=== PATIENT | female | born 1950 | race Caucasian/White ===

== ENCOUNTER 2017-04-27 18:50 | Observation (INO) ==
[2017-04-27 19:48] LABS: Basophils # 0.1 K/mcL (0.0-0.2); Basophils % 0.3 %; Eosinophils # 0.3 K/mcL (0.0-0.6); Eosinophils % 2.1 %; Hematocrit 39.7 % (35.3-44.9); Hemoglobin 12.7 g/dL (11.5-15.4); Immature Granulocytes % 0.3 % (0-4); Immature Platelets 5.1 % (1.1-6.1); Lymphocytes # 3.1 K/mcL (0.6-4.6); Lymphocytes % 19.8 %; Mean Corpuscular Hemoglobin 28.1 pg (28.0-33.3); Mean Corpuscular Volume 87.8 fL (83.0-100.0); Mean Platelet Volume 10.4 fL (9.4-12.4); Monocytes # 1.9 K/mcL (0.0-1.3); Monocytes % 12.6 %; Platelet Count 285 K/mcL (140-400); Red Blood Count 4.52 M/mcL (3.82-4.97); Red Cell Distribution Width 12.5 % (11.5-14.5); Segmented Neutrophils % 64.9 %
[2017-04-27] MEDS ORDERED: Ipratropium/Albuterol Neb 3 ML IH ONE (19:55)
[2017-04-27 20:01] LABS: BUN/Creatinine Ratio 19 (6-26); Blood Urea Nitrogen 14 mg/dL (7-20); Calcium 9.7 mg/dL (8.6-10.8); Carbon Dioxide 28 mEq/L (19-29); Chloride 97 mEq/L (98-109); Glucose 104 mg/dL (70-99); Osmolality,Calculated 285 (280-300); Potassium 3.8 mEq/L (3.5-4.5); Sodium 137 mEq/L (136-145); eGFR For African Americans > 60 (> 60); eGFR For Non-African Americans > 60 (> 60)
--- NOTE | 2017-04-27 20:17 | Emergency Department Note ---
Disposition Clinical Impression: Acute exacerbation of chronic obstructive pulmonary disease (COPD), Hip pain, right Disposition: Admitted As Inpatient Condition: Fair Referrals: NONE,PCP [Primary Care Provider] - Forms: ED Satisfaction Letter Chest Pain HPI - General Chief Complaint: ED Chest Pain Stated Complaint: CP/AVIS, Hip pain Time Seen by Provider: 04/27/17 19:19 Source: patient Vital Signs Reviewed: Yes Nursing Notes Reviewed: Yes - History of Present Illness HPI Narrative: Patient presents with shortness of breath last 1 week is intermittent and is worse with exertion and she does have associated chest pain which has been present for the last 4 hours and she does have a cough productive of green sputum. Does have some sneezing. Has had some nosebleed but not at this time. Does have some blood in the sputum but thinks this is from the nosebleed. No fever or blurred vision. No blood in the urine. Has had blood in the stool. Does have swelling bilateral lower extremities. No weight gain. No numbness of the extremities. No skin rash or bruising of the skin. No history of congestive heart failure. Social history: Stopped smoking one year ago. Is here with her son. Severity scale (1-10): 9 - Related Data Home Medications Medication Instructions Recorded Confirmed Paroxetine [Paxil] 20 mg PO HS 07/08/16 04/27/17 Triamterene/Hydrochlorothiazid 1 each PO DAILY 07/08/16 04/27/17 [Dyazide 37.5-25 Capsule] metFORMIN [Glucophage] 500 mg PO BIDWM 07/08/16 04/27/17 Albuterol Sulfate [Albuterol 2 puff IH Q4HR 04/27/17 04/27/17 Inhaler] Ascorbate Calcium [Vitamin C] 500 mg PO DAILY 04/27/17 04/27/17 Budesonide Neb [Pulmicort Neb] 0.5 mg IH BID 04/27/17 04/27/17 Cholecalciferol (D-3) [Vitamin D] 1,000 unit PO DAILY 04/27/17 04/27/17 Ipratropium/Albuterol Neb [Duoneb] 3 ml IH Q6H 04/27/17 04/27/17 Loratadine [Allergy Relief] 10 mg PO DAILY 04/27/17 04/27/17 Allergies Allergy/AdvReac Type Severity Reaction Status Date / Time acetaminophen [From Percocet] Allergy See Verified 07/07/16 21:14 Comments bupropion [From Wellbutrin] Allergy See Verified 07/07/16 21:14 Comments Oxycodone [From Percocet] Allergy See Verified 07/07/16 21:14 Comments morphine AdvReac Hives Verified 11/24/15 16:16 pseudoephedrine AdvReac See Verified 11/24/15 16:16 [From Sudafed] Comments Review of Systems: does have a cough productive of green sputum. Does have some sneezing. Has had some nosebleed but not at this time. Does have some blood in the sputum but thinks this is from the nosebleed. No fever or blurred vision. No blood in the urine. Has had blood in the stool. Does have swelling bilateral lower extremities. No weight gain. No numbness of the extremities. No skin rash or bruising of the skin. Chest Pain PMH - Past Medical History Medical history: Reports: arthritis, diabetes, hypertension Surgical history: Reports: appendectomy, cholecystectomy Psychiatric history: Reports: no psych history [employer] history: Reports: bilateral tubal ligation - Social History Smoking Status: Former smoker Alcohol use: Reports: none Drug use: Reports: none Physical Exam CONSTITUTIONAL: Well-appearing; well-nourished; A&O X 3, in no apparent distress HEAD: Normocephalic; atraumatic EYES: PERRL, no scleral icterus NOSE: The nose is normal in appearance without rhinorrhea NECK: No JVD or distended neck veins RESP: Normal chest excursion with respiration; breath sounds with bilateral wheezing with tight lungs and poor air movement, lung sounds are symmetric CARD: Regular rhythm, without murmurs, rub or gallop ABD: Non-distended; non-tender, soft, without rigidity, rebound or guarding,no pulsatile mass SKIN: Normal for age and race; warm and dry without diaphoresis ; no apparent lesions EXTREMITIES: Pulses are 2 plus and equal times 4 extremities, no peripheral edema or calf muscle pain - General General appearance: alert Course Vital Signs Temperature 98.7 F 04/27/17 18:51 Pulse Rate 103 04/27/17 18:51 Respiratory Rate 24 04/27/17 18:51 Blood Pressure 141/84 04/27/17 18:51 O2 Sat by Pulse Oximetry 99 04/27/17 18:51 Temperature 98.7 F 04/27/17 18:51 Pulse Rate 103 04/27/17 18:51 Respiratory Rate 25 04/27/17 20:39 Blood Pressure 141/84 04/27/17 18:51 O2 Sat by Pulse Oximetry 100 04/27/17 20:39 Oxygen Delivery Oxygen Delivery Room Air Chest Pain - MDM Narrative Medical decision making narrative: I did review the patient's lab was some mild leukocytosis which could be from demargination, patient will be started on antibiotics, chest x-ray does not show an acute infiltrate. Patient will be admitted to hospital. Does also have some right hip pain which she has had since she was 17 years old, I did look at the hip and is no erythema or evidence of infection, does have decreased range of motion and pain with range of motion. 2016 I did review the EKG showing sinus tachycardia with rate of 103 without acute ischemic change. The HI and QRS interval is normal. I did compared to previous EKG from 2016 without significant change. Did speak with the hospitalist who accepted the patient for admission for COPD exacerbation. Patient does have what seems to me to be chronic right hip pain which is worse now this could be because of difference in amount of ambulation based on the fact that she has had a progressively worsening COPD exacerbation for the last 1 week and x-ray will be done. I do not find signs of infection. The patient had a low BNP and I do not suspect congestive heart failure, troponin is negative, the d-dimer based on a age-adjusted fashion is not concerning for pulmonary embolism. The patient will be admitted on steroids, DuoNeb, antibiotics which include Rocephin and Zithromax. 2051 - Lab Data Result diagrams: 04/27/17 19:37 04/27/17 19:37 Lab Results 04/27/17 04/27/17 04/27/17 Range/Units 19:37 19:37 19:37 WBC 15.4 H (4.3-11.1) K/mcL RBC 4.52 (3.82-4.97) M/mcL Hgb 12.7 (11.5-15.4) g/dL Hct 39.7 (35.3-44.9) % MCV 87.8 (83.0-100.0) fL MCH 28.1 (28.0-33.3) pg MCHC 32.0 (31.6-35.5) g/dL RDW 12.5 (11.5-14.5) % Plt Count 285 (140-400) K/mcL MPV 10.4 (9.4-12.4) fL Immature Gran % 0.3 (0-4) % Seg Neutrophils % 64.9 % Lymphocytes % 19.8 % Monocytes % 12.6 % Eosinophils % 2.1 % Basophils % 0.3 % Neutrophils # 10.0 H (1.6-8.9) K/mcL Lymphocytes # 3.1 (0.6-4.6) K/mcL Monocytes # 1.9 H (0.0-1.3) K/mcL Eosinophils # 0.3 (0.0-0.6) K/mcL Basophils # 0.1 (0.0-0.2) K/mcL Immature Plt Fraction 5.1 (1.1-6.1) % D-Dimer (0-500) ng/mLFEU Sodium 137 (136-145) mEq/L Potassium 3.8 (3.5-4.5) mEq/L Chloride 97 L (98-109) mEq/L Carbon Dioxide 28 (19-29) mEq/L BUN 14 (7-20) mg/dL Creatinine 0.73 (0.57-1.11) mg/dL Est GFR ( Amer) > 60 (> 60) Est GFR (Non-Af Amer) > 60 (> 60) BUN/Creatinine Ratio 19 (6-26) Glucose 104 H (70-99) mg/dL Calculated Osmolality 285 (280-300) Calcium 9.7 (8.6-10.8) mg/dL Troponin I 0.00 (0-0.03) ng/mL B-Natriuretic Peptide (0-100) pg/mL 04/27/17 04/27/17 Range/Units 19:37 19:37 WBC (4.3-11.1) K/mcL RBC (3.82-4.97) M/mcL Hgb (11.5-15.4) g/dL Hct (35.3-44.9) % MCV (83.0-100.0) fL MCH (28.0-33.3) pg MCHC (31.6-35.5) g/dL RDW (11.5-14.5) % Plt Count (140-400) K/mcL MPV (9.4-12.4) fL Immature Gran % (0-4) % Seg Neutrophils % % Lymphocytes % % Monocytes % % Eosinophils % % Basophils % % Neutrophils # (1.6-8.9) K/mcL Lymphocytes # (0.6-4.6) K/mcL Monocytes # (0.0-1.3) K/mcL Eosinophils # (0.0-0.6) K/mcL Basophils # (0.0-0.2) K/mcL Immature Plt Fraction (1.1-6.1) % D-Dimer 600 H (0-500) ng/mLFEU Sodium (136-145) mEq/L Potassium (3.5-4.5) mEq/L Chloride (98-109) mEq/L Carbon Dioxide (19-29) mEq/L BUN (7-20) mg/dL Creatinine (0.57-1.11) mg/dL Est GFR ( Amer) (> 60) Est GFR (Non-Af Amer) (> 60) BUN/Creatinine Ratio (6-26) Glucose (70-99) mg/dL Calculated Osmolality (280-300) Calcium (8.6-10.8) mg/dL Troponin I (0-0.03) ng/mL B-Natriuretic Peptide 15 (0-100) pg/mL
[2017-04-27] MEDS ORDERED: Azithromycin 500 MG in D5% in Water 250 ML IVPB ONE (20:18)
[2017-04-27] MEDS ORDERED: *HR* LORazepam 2 MG/ML VIAL IVP ONE (20:27)
[2017-04-27] MEDS ORDERED: Ipratropium/Albuterol Neb 3 ML IH PRN (21:56)
[2017-04-27] MEDS ORDERED: *HR* Dextrose 50 % in Water (Syg) 50 ML SYRINGE IVP PRN (21:57)
[2017-04-27] MEDS ORDERED: Naloxone 0.4 MG/ML INJ IVP PRN (21:57)
[2017-04-27] MEDS ORDERED: D5% in Water 1,000 ML IVC PRN (21:57)
[2017-04-27] MEDS ORDERED: Dextrose Gel 15 GM PO PRN ×2 (21:57)
--- NOTE | 2017-04-27 22:06 | Internal Med History&Physical ---
Date of Encounter: 04/27/17 Time of Encounter: 22:03 Assessment and Plan (1) Acute exacerbation of chronic obstructive pulmonary disease (COPD) Current visit: Yes Status: Acute duonebs, steroids IV, levaquin empiric for possible PNA ?? (2) Hip pain, right Current visit: Yes Status: Acute zanaflex, tramadol order, PT eval, XR hip in ED wnl, further management pending hospital course (3) Diabetes mellitus type 2 in obese Current visit: No Status: Chronic hold metformin, ISS for now (4) Hypertension Current visit: No Status: Chronic continue med Qualifiers: Hypertension type: essential hypertension Qualified Code(s): I10 - Essential (primary) hypertension Internal Medicine - H&P: HPI Chief complaint: SOB History of present illness: Ms. Rodas is a 66 year old female who presents with acute COPD exacerbation. At baseline, she lives with at home and uses 3L NC oxygen. In the last few days, she has noted progressive worsening of respiratory function with increasing SOB, worse with exertion, better at rest. On review, she also reported 1 week hx of right hip pain w/o antecedent trauma to the area. She reports right hip area pain, worse with leg raise which intermittently produces a shooting pain to the thigh. No prior hx of hx surgery in the area. As a result, she has been walking with a limp in the last week now. No sensory deficits XR/XR hip complete RT IMPRESSION: No acute osseous abnormality. Degenerative change as above. XR/XR chest 2V IMPRESSION: Bilateral lower lobe airspace disease. Findings could represent pneumonia or edema superimposed on obstructive lung disease. Past Med Surg Social Fam HX - Past Medical History Medical history: arthritis, diabetes, hypertension Psychiatric history: no psych history - Past Surgical History Surgical History: appendectomy, cholecystectomy - Social History Smoking Status: Former smoker Smokeless Tobacco Status: No Alcohol use: none Drug use: none - Family History Sister Hx Family Respiratory Disorders: Yes (COPD.) Internal Medicine - H&P: Meds Paroxetine [Paxil] 20 mg PO HS 07/08/16 [History] Triamterene/Hydrochlorothiazid [Dyazide 37.5-25 Capsule] 1 each PO DAILY [History] metFORMIN [Glucophage] 500 mg PO BIDWM 07/08/16 [History] Albuterol Sulfate [Albuterol Inhaler] 2 puff IH Q4HR 04/27/17 [History] Ascorbate Calcium [Vitamin C] 500 mg PO DAILY 04/27/17 [History] Budesonide Neb [Pulmicort Neb] 0.5 mg IH BID 04/27/17 [History] Cholecalciferol (D-3) [Vitamin D] 1,000 unit PO DAILY 04/27/17 [History] Ipratropium/Albuterol Neb [Duoneb] 3 ml IH Q6H 04/27/17 [History] Loratadine [Allergy Relief] 10 mg PO DAILY 04/27/17 [History] 3 Allergy/AdvReac Type Severity Reaction Status Date / Time acetaminophen [From Percocet] Allergy See Verified 07/07/16 21:14 Comments bupropion [From Wellbutrin] Allergy See Verified 07/07/16 21:14 Comments Oxycodone [From Percocet] Allergy See Verified 07/07/16 21:14 Comments morphine AdvReac Hives Verified 11/24/15 16:16 pseudoephedrine AdvReac See Verified 11/24/15 16:16 [From Sudafed] Comments All Systems PM: A 10-system review of systems was performed and is negative for pertinent findings except as documented above in the HPI. Review of systems: ROS 14 point review of systems reviewed as best as possible given presentation. Pertinent positive or negative as per HPI or otherwise reviewed as negative - Constitutional Vitals: Temp Pulse Resp BP Pulse Ox 98.7 F 96 16 124/50 99 04/27/17 18:51 04/27/17 21:50 04/27/17 21:50 04/27/17 21:50 04/27/17 21:50 Exam: General - AAO x 3 Psych - Appropriate affect/speech. No agitation Eyes - EDELMIRA. Eye lids intact. No scleral icterus Neuro - No gross central neuro deficits Heart - Sinus. RRR. S1 and S2 present. No added HS/murmurs appreciated. No elevated JVD appreciated. Lung - Adequate air entry b/l, diffuse wheezes throughout, bibasal crackles GI - Soft, non-tender. No hepatosplenomegaly/ascites. BS+ - No CVA/suprapubic tenderness or palpable bladder distension Skin - Intact. No rash/petechiae/ecchymosis. Warm extremities MSK - Right hip area pain on lifting leg Internal Med - H&P Results - Labs CBC & Chem 7: 04/27/17 19:37 04/27/17 19:37 Labs: Short CBC 04/27/17 Range/Units 19:37 WBC 15.4 H (4.3-11.1) K/mcL Hgb 12.7 (11.5-15.4) g/dL Hct 39.7 (35.3-44.9) % Plt Count 285 (140-400) K/mcL Neutrophils # 10.0 H (1.6-8.9) K/mcL BMP 04/27/17 19:37 Sodium 137 Potassium 3.8 Chloride 97 L Carbon Dioxide 28 BUN 14 Creatinine 0.73 Glucose 104 H Calcium 9.7 Cardiac Enzymes 04/27/17 Range/Units 19:37 Troponin I 0.00 (0-0.03) ng/mL - Impressions ITS Impressions Chest X-Ray 04/27/17 19:17 IMPRESSION: Bilateral lower lobe airspace disease. Findings could represent pneumonia or edema superimposed on obstructive lung disease. D/ / Savita Dukes Cha, MD / Savita Dukes Cha, MD Interpreting Provider: Savita Dukes Cha, MD Hip X-Ray 04/27/17 20:26 IMPRESSION: No acute osseous abnormality. Degenerative change as above. D/ / Rigoberto Martinez MD / Rigoberto Martinez MD Interpreting Provider: Rigoberto Martinez MD
[2017-04-27] MEDS: Ipratropium/Albuterol Neb 3 ML IH SCH (22:56)
[2017-04-28] MEDS: traMADol 50 MG TABLET PO PRN (00:37)
[2017-04-28] MEDS: MethylPREDNISolone 40 MG/ML VIAL IVP SCH ×4 (00:37→17:12)
[2017-04-28] MEDS: tiZANidine 4 MG TABLET PO PRN ×3 (03:38→21:07)
[2017-04-28] MEDS: Ipratropium/Albuterol Neb 3 ML IH SCH ×4 (03:57→22:08)
[2017-04-28 05:30] LABS: Basophils % 0.1 %; Eosinophils % 0.1 %; Hemoglobin 11.4 g/dL (11.5-15.4); Immature Granulocytes % 0.6 % (0-4); Lymphocytes # 1.5 K/mcL (0.6-4.6); Lymphocytes % 10.7 %; Mean Corpuscular HGB Conc 31.7 g/dL (31.6-35.5); Mean Corpuscular Hemoglobin 27.5 pg (28.0-33.3); Mean Platelet Volume 10.7 fL (9.4-12.4); Monocytes # 0.4 K/mcL (0.0-1.3); Monocytes % 3.1 %; Neutrophils # 11.7 K/mcL (1.6-8.9); Platelet Count 258 K/mcL (140-400); Red Blood Count 4.14 M/mcL (3.82-4.97); Red Cell Distribution Width 12.5 % (11.5-14.5); Segmented Neutrophils % 85.4 %
[2017-04-28] MEDS: *HR* Enoxaparin 40 MG/0.4 ML SYRINGE SQ SCH (05:35)
[2017-04-28 05:37] LABS: BUN/Creatinine Ratio 16 (6-26); Blood Urea Nitrogen 12 mg/dL (7-20); Calcium 9.5 mg/dL (8.6-10.8); Carbon Dioxide 28 mEq/L (19-29); Chloride 97 mEq/L (98-109); Glucose 185 mg/dL (70-99); Magnesium 1.9 mg/dL (1.6-2.6); Osmolality,Calculated 283 (280-300); Potassium 4.3 mEq/L (3.5-4.5); Sodium 134 mEq/L (136-145); eGFR For African Americans > 60 (> 60); eGFR For Non-African Americans > 60 (> 60)
[2017-04-28] MEDS: Ascorbic Acid 500 MG TABLET PO SCH (08:41)
[2017-04-28] MEDS: Loratadine 10 MG TABLET PO SCH (08:41)
[2017-04-28] MEDS: Cholecalciferol (D-3) 1,000 UNIT TABLET PO SCH (08:41)
[2017-04-28] MEDS: Levofloxacin 500 MG/100 ML 500 MG/100 ML BAG IVPB SCH (08:42)
[2017-04-28] MEDS: Insulin LISPRO 300 UNITS/3 ML VIAL SQ SCH ×3 (08:42→17:11)
[2017-04-28] MEDS: Budesonide Neb 0.5 MG/2 ML IH SCH ×2 (10:22→22:08)
--- NOTE | 2017-04-28 16:22 | Internal Med Progress Note ---
Date of Encounter: 04/28/17 Time of Encounter: 09:25 - Assessment and plan (1) Acute exacerbation of chronic obstructive pulmonary disease (COPD) Current Visit: Yes Status: Acute Assessment and plan: continue treatment with bronchodilators, IV steroids and Levaquin. Moderate risk for complications. (2) Diabetes mellitus type 2 in obese Current Visit: Yes Status: Chronic Assessment and plan: Blood sugars are elevated. We will place patient on long-acting insulin. Monitor blood sugars and Also adjust sliding scale coverage accordingly. (3) Hip pain, right Current Visit: Yes Status: Acute Assessment and plan: With features of lumbar radiculopathy. Symptomatic care. We will arrange follow-up as outpatient with spine surgery. We will get CT scan of the lumbar spine. Physical therapy. (4) Hypertension Current Visit: Yes Status: Chronic Assessment and plan: Well controlled. Qualifiers: Hypertension type: essential hypertension Qualified Code(s): I10 - Essential (primary) hypertension - Subjective Interval history: Patient is feeling somewhat better with regards to her breathing but continues to have right sided hip pain in the right lower back. No chest pain at this time. No sensory deficits. No lower extremity weakness. No bowel or bladder incontinence. - Constitutional Vitals: Temp Pulse Resp BP Pulse Ox 97.0 F L 76 16 113/56 96 04/28/17 15:20 04/28/17 15:20 04/28/17 15:43 04/28/17 15:20 04/28/17 15:43 General appearance: Present: cooperative, A&O X 3, answers questions appropriately - Neck Neck exam general surgery: Present: supple, trachea midline. Absent: lymphadenopathy - Respiratory Respiratory exam: Present: prolonged expiratory phase, wheezes. Absent: accessory muscle use, rales, rhonchi - Cardiovascular Cardiovascular exam: Present: RRR, +S1, +S2. Absent: diastolic murmur, gallop, rubs, systolic murmur - GI/Abdominal GI/Abdominal exam: Present: normal bowel sounds, soft, no peritoneal signs. Absent: distended, tenderness - Extremities Exam Extremities exam: Present: warm, radial pulses palpable and symmetrical. Absent : calf tenderness, cyanotic, pedal edema - Neurological Exam Neurological exam: Present: alert, oriented X3, no focal deficits. Absent: facial droop, speech deficit Internal Medicine: Result - Labs CBC & Chem 7: 04/28/17 05:11 04/28/17 05:11 Labs: Short CBC 04/28/17 Range/Units 05:11 WBC 13.7 H (4.3-11.1) K/mcL Hgb 11.4 L (11.5-15.4) g/dL Hct 36.0 (35.3-44.9) % Plt Count 258 (140-400) K/mcL Neutrophils # 11.7 H (1.6-8.9) K/mcL BMP 04/28/17 05:11 Sodium 134 L Potassium 4.3 Chloride 97 L Carbon Dioxide 28 BUN 12 Creatinine 0.73 Glucose 185 H Calcium 9.5 - ABG Interpretation ABG results: PT/INR, D-dimer D-Dimer 600 ng/mLFEU (0-500) H 04/27/17 19:37 Consult Discharge Plan - Plan Referrals: NONE,PCP [Primary Care Provider] -
[2017-04-28] MEDS: 0.9 % Sodium Chloride 1,000 ML IVC SCH (17:12)
[2017-04-28] MEDS ORDERED: Insulin LISPRO 300 UNITS/3 ML VIAL SQ SCH (21:00)
[2017-04-28] MEDS: Insulin DETEMIR 100 UNIT/ML X5UNITS SQ SCH (21:08)
[2017-04-29] MEDS: MethylPREDNISolone 40 MG/ML VIAL IVP SCH ×4 (00:17→17:12)
[2017-04-29] MEDS: Ipratropium/Albuterol Neb 3 ML IH SCH ×4 (04:40→21:06)
[2017-04-29] MEDS: tiZANidine 4 MG TABLET PO PRN ×3 (05:28→23:30)
[2017-04-29] MEDS: *HR* Enoxaparin 40 MG/0.4 ML SYRINGE SQ SCH (05:29)
[2017-04-29 08:06] LABS: Hematocrit 33.8 % (35.3-44.9); Hemoglobin 10.7 g/dL (11.5-15.4); Immature Granulocytes % 1.2 % (0-4); Lymphocytes % 6.4 %; Mean Corpuscular HGB Conc 31.7 g/dL (31.6-35.5); Mean Corpuscular Hemoglobin 27.6 pg (28.0-33.3); Mean Corpuscular Volume 87.3 fL (83.0-100.0); Mean Platelet Volume 11.4 fL (9.4-12.4); Monocytes % 4.6 %; Platelet Count 267 K/mcL (140-400); Red Blood Count 3.87 M/mcL (3.82-4.97); Red Cell Distribution Width 12.5 % (11.5-14.5); Segmented Neutrophils % 87.7 %
[2017-04-29 08:07] LABS: Basophils % 0.1 %; Lymphocytes # 1.2 K/mcL (0.6-4.6); Monocytes # 0.9 K/mcL (0.0-1.3); Neutrophils # 16.9 K/mcL (1.6-8.9); Nucleated Red Blood Cells 0.1 /100 WBC (0)
[2017-04-29] MEDS: Loratadine 10 MG TABLET PO SCH (08:37)
[2017-04-29] MEDS: Ascorbic Acid 500 MG TABLET PO SCH (08:37)
[2017-04-29] MEDS: Cholecalciferol (D-3) 1,000 UNIT TABLET PO SCH (08:37)
[2017-04-29] MEDS: Levofloxacin 500 MG/100 ML 500 MG/100 ML BAG IVPB SCH (08:37)
[2017-04-29 08:38] LABS: BUN/Creatinine Ratio 23 (6-26); Blood Urea Nitrogen 15 mg/dL (7-20); Calcium 9.3 mg/dL (8.6-10.8); Carbon Dioxide 27 mEq/L (19-29); Chloride 99 mEq/L (98-109); Glucose 196 mg/dL (70-99); Osmolality,Calculated 284 (280-300); Potassium 4.4 mEq/L (3.5-4.5); Sodium 134 mEq/L (136-145); eGFR For African Americans > 60 (> 60); eGFR For Non-African Americans > 60 (> 60)
[2017-04-29] MEDS: Insulin LISPRO 300 UNITS/3 ML VIAL SQ SCH ×3 (08:38→16:55)
[2017-04-29] MEDS: Insulin DETEMIR 100 UNIT/ML X5UNITS SQ SCH ×2 (08:38→20:23)
[2017-04-29] MEDS: Budesonide Neb 0.5 MG/2 ML IH SCH ×2 (09:53→21:06)
[2017-04-29] MEDS: 0.9 % Sodium Chloride 1,000 ML IVC SCH (14:37)
--- NOTE | 2017-04-29 16:30 | Internal Med Progress Note ---
Date of Encounter: 04/29/17 Time of Encounter: 09:10 - Assessment and plan (1) Acute exacerbation of chronic obstructive pulmonary disease (COPD) Current Visit: Yes Status: Acute Assessment and plan: Will continue bronchodilators. Transition steroids to oral dosing. Continue O2 supplementation. Overall, I feel the patient is clinically improving. She would benefit from another day of scheduled bronchodilator therapy. If she continues to improve, she should be ready for discharge tomorrow. (2) Diabetes mellitus type 2 in obese Current Visit: Yes Status: Chronic Assessment and plan: Blood sugars remain elevated. We will increase insulin regimen further. Continue to monitor blood sugars closely. (3) Hip pain, right Current Visit: Yes Status: Acute Assessment and plan: Right hip pain with lumbar radiculopathy. CT scan of the lumbar spine shows no fracture but patient does have disc space narrowing with diffuse disc bulge at L4-L5 and L5-S1 level. There is also disc bulge at L3-L4 level. Mild-to- moderate foraminal narrowing noted from L4-S1. His could be the cause of patient's pain and symptoms symptoms of lumbar radiculopathy. Will refer patient to spine surgery for further management as outpatient. (4) Hypertension Current Visit: Yes Status: Chronic Assessment and plan: Blood pressure is well controlled at this time. Qualifiers: Hypertension type: essential hypertension Qualified Code(s): I10 - Essential (primary) hypertension - Subjective Interval history: Patient continues to improve but remains intermittently dyspneic. Pain in her lower back and right hip is also better with intermittent worsening. Denies any chest pain. No pedal edema. No orthopnea or PND. No palpitations. - Constitutional Vitals: Temp Pulse Resp BP Pulse Ox 98.3 F 83 18 108/53 97 04/29/17 15:28 04/29/17 15:28 04/29/17 15:28 04/29/17 15:28 04/29/17 15:28 General appearance: Present: cooperative, mild distress, A&O X 3, answers questions appropriately - Neck Neck exam general surgery: Present: supple, trachea midline. Absent: lymphadenopathy - Respiratory Respiratory exam: Present: prolonged expiratory phase, wheezes (Mild end expiratory wheezing. Improved compared to yesterday). Absent: accessory muscle use, rales, rhonchi - Cardiovascular Cardiovascular exam: Present: RRR, +S1, +S2. Absent: diastolic murmur, gallop, rubs, systolic murmur - GI/Abdominal GI/Abdominal exam: Present: normal bowel sounds, soft, no peritoneal signs. Absent: distended, tenderness - Extremities Exam Extremities exam: Present: warm, radial pulses palpable and symmetrical. Absent : calf tenderness, cyanotic, pedal edema - Neurological Exam Neurological exam: Present: alert, CN II-XII intact, oriented X3, no focal deficits. Absent: facial droop, speech deficit - Skin Skin exam: Present: dry, intact Internal Medicine: Result - Labs CBC & Chem 7: 04/29/17 07:00 04/29/17 07:00 Labs: Short CBC 04/29/17 Range/Units 07:00 WBC 19.3 H (4.3-11.1) K/mcL Hgb 10.7 L (11.5-15.4) g/dL Hct 33.8 L (35.3-44.9) % Plt Count 267 (140-400) K/mcL Neutrophils # 16.9 H (1.6-8.9) K/mcL BMP 04/29/17 07:00 Sodium 134 L Potassium 4.4 Chloride 99 Carbon Dioxide 27 BUN 15 Creatinine 0.65 Glucose 196 H Calcium 9.3 - ABG Interpretation ABG results: PT/INR, D-dimer D-Dimer 600 ng/mLFEU (0-500) H 04/27/17 19:37 - Impressions Impressions Lumbar Spine CT 04/28/17 16:26 IMPRESSION: No acute osseous abnormality. Degenerative change as above. D/ / 04/28/2017 18:40:25 Rigoberto Martinez MD / [email or web address] Interpreting Provider: Rigoberto Martinez MD Consult Discharge Plan - Plan Referrals: NONE,PCP [Primary Care Provider] - Rakesh Perry Jr, MD [Partnered Physician] - (In 1-2 weeks for L4-S1 bulge and foraminal narrowing along with symptoms of lumbar radiculopathy)
[2017-04-29] MEDS ORDERED: Insulin LISPRO 300 UNITS/3 ML VIAL SQ SCH ×2 (16:35)
[2017-04-30] MEDS: traMADol 50 MG TABLET PO PRN (03:48)
[2017-04-30] MEDS: Ipratropium/Albuterol Neb 3 ML IH SCH ×2 (04:19→10:51)
[2017-04-30] MEDS: tiZANidine 4 MG TABLET PO PRN (05:41)
[2017-04-30] MEDS: *HR* Enoxaparin 40 MG/0.4 ML SYRINGE SQ SCH (05:42)
[2017-04-30 06:38] LABS: Basophils % 0.1 %; Hematocrit 32.6 % (35.3-44.9); Hemoglobin 10.3 g/dL (11.5-15.4); Lymphocytes # 2.7 K/mcL (0.6-4.6); Lymphocytes % 12.2 %; Mean Corpuscular HGB Conc 31.6 g/dL (31.6-35.5); Mean Corpuscular Hemoglobin 28.1 pg (28.0-33.3); Mean Corpuscular Volume 88.8 fL (83.0-100.0); Mean Platelet Volume 11.6 fL (9.4-12.4); Monocytes # 1.5 K/mcL (0.0-1.3); Monocytes % 6.7 %; Neutrophils # 17.5 K/mcL (1.6-8.9); Platelet Count 282 K/mcL (140-400); Red Blood Count 3.67 M/mcL (3.82-4.97); Red Cell Distribution Width 12.7 % (11.5-14.5)
[2017-04-30 06:53] LABS: BUN/Creatinine Ratio 27 (6-26); Blood Urea Nitrogen 17 mg/dL (7-20); Calcium 9.3 mg/dL (8.6-10.8); Carbon Dioxide 28 mEq/L (19-29); Chloride 100 mEq/L (98-109); Glucose 115 mg/dL (70-99); Osmolality,Calculated 280 (280-300); Potassium 4.4 mEq/L (3.5-4.5); Sodium 134 mEq/L (136-145); eGFR For African Americans > 60 (> 60); eGFR For Non-African Americans > 60 (> 60)
[2017-04-30] MEDS ORDERED: predniSONE 20 MG TABLET PO SCH (09:00)
[2017-04-30] MEDS: Ascorbic Acid 500 MG TABLET PO SCH (09:01)
[2017-04-30] MEDS: Cholecalciferol (D-3) 1,000 UNIT TABLET PO SCH (09:01)
[2017-04-30] MEDS: Loratadine 10 MG TABLET PO SCH (09:01)
[2017-04-30] MEDS: Levofloxacin 500 MG/100 ML 500 MG/100 ML BAG IVPB SCH (09:02)
[2017-04-30] MEDS: Insulin DETEMIR 100 UNIT/ML X5UNITS SQ SCH (09:02)
[2017-04-30] MEDS: Budesonide Neb 0.5 MG/2 ML IH SCH (10:51)
[2017-04-30 11:13] VITALS: BP 114/73
--- NOTE | 2017-04-30 11:21 | Discharge Summary ---
Date of Encounter: 04/30/17 Time of Encounter: 11:18 - Discharge Diagnosis (1) Acute exacerbation of chronic obstructive pulmonary disease (COPD) Priority: Primary Status: Acute (2) Diabetes mellitus type 2 in obese Priority: Secondary Status: Chronic (3) Hip pain, right Priority: Secondary Status: Acute (4) Hypertension Priority: Secondary Status: Chronic Qualifiers: Hypertension type: essential hypertension Qualified Code(s): I10 - Essential (primary) hypertension - Discharge Medications Prescriptions: levoFLOXacin [Levaquin] 500 mg PO DAILY #7 tablet predniSONE [PredniSONE] 60 mg PO DAILY 12 Days Home Medications: Paroxetine [Paxil] 20 mg PO HS 07/08/16 [History] Triamterene/Hydrochlorothiazid [Dyazide 37.5-25 Capsule] 1 each PO DAILY [History] Albuterol Sulfate [Albuterol Inhaler] 2 puff IH Q4HR 04/27/17 [History] Ascorbate Calcium [Vitamin C] 500 mg PO DAILY 04/27/17 [History] Budesonide Neb [Pulmicort Neb] 0.5 mg IH BID 04/27/17 [History] Cholecalciferol (D-3) [Vitamin D] 1,000 unit PO DAILY 04/27/17 [History] Ipratropium/Albuterol Neb [Duoneb] 3 ml IH Q6H 04/27/17 [History] Loratadine [Allergy Relief] 10 mg PO DAILY 04/27/17 [History] levoFLOXacin [Levaquin] 500 mg PO DAILY #7 tablet 04/30/17 [Rx] predniSONE [PredniSONE] 60 mg PO DAILY 12 Days 04/30/17 [Rx] Allergies/Adverse Reactions: 3 Allergy/AdvReac Type Severity Reaction Status Date / Time acetaminophen [From Percocet] Allergy See Verified 07/07/16 21:14 Comments bupropion [From Wellbutrin] Allergy See Verified 07/07/16 21:14 Comments Oxycodone [From Percocet] Allergy See Verified 07/07/16 21:14 Comments morphine AdvReac Hives Verified 11/24/15 16:16 pseudoephedrine AdvReac See Verified 11/24/15 16:16 [From Sudafed] Comments Procedures/tests Complete & Pending: Procedures Performed prior 72 hours Category Date Time Status CT lumbar spine w con [CT] Routine Cat Scan 04/28/17 16:26 Completed Date of admission: 04/27/17 22:41 Primary care physician: PCP NONE Discharging clinician: Wendy Mancilla Anticipated date of discharge: 04/30/17 - Patient Status Disposition: Home, Self-Care Condition: Good Functional capacity at discharge: independent ambulation Overall status at discharge: patient is progressing back to baseline - Discharge Instructions Instructions: Prednisone (By mouth), Levofloxacin (By mouth), Acute Respiratory Distress Syndrome (DC), Diabetes Mellitus Type 2 in Adults (DC), Chronic Obstructive Pulmonary Disease (DC), Chronic Obstructive Pulmonary Disease (GEN) Follow Up With: Rakesh Perry Jr, MD [Partnered Physician] - (In 1-2 weeks for L4-S1 bulge and foraminal narrowing along with symptoms of lumbar radiculopathy) Romario Samson DO [Resident] - (PLEASE CALL THE OFFICE TOMORROW TO MAKE A FOLLOW UP APPT.) - Diet and Activity Activity: wear oxygen at all times Diet: diabetic diet, low fat, low cholesterol, low salt diet Hospital course: Ms. Rodas is a 66 year old female patient with history of COPD was admitted here with acute COPD exacerbation. She was treated with steroids, bronchodilators and levofloxacin with improvement in her symptoms. She also had right-sided lumbar radiculopathy and low back pain and right hip pain. CT scan of the lumbar spine showed some disc protrusion at L4-S1 levels with some foraminal narrowing. She will be referred to spine surgery for further management. She is chronically oxygen dependent and will continue to use oxygen at home. She is clinically stable for discharge at this time on a steroid taper and short course of antibiotics. - Time Spent with Patient Total time spent providing and/or coordinating discharge services: Greater than 30 minutes (32 min) - Constitutional Vitals: Temp Pulse Resp BP Pulse Ox 98.0 F 79 16 114/73 100 04/30/17 11:08 04/30/17 11:08 04/30/17 11:08 04/30/17 11:08 04/30/17 11:08 General appearance: Present: cooperative, mild distress, A&O X 3, obese, answers questions appropriately - Neck Neck exam general surgery: Present: supple, trachea midline. Absent: lymphadenopathy - Respiratory Respiratory exam: Present: prolonged expiratory phase. Absent: accessory muscle use, rales, rhonchi, wheezes - Cardiovascular Cardiovascular exam: Present: RRR, +S1, +S2. Absent: diastolic murmur, gallop, rubs, systolic murmur - GI/Abdominal GI/Abdominal exam: Present: normal bowel sounds, soft, no peritoneal signs. Absent: distended, tenderness - Extremities Exam Extremities exam: Present: warm, radial pulses palpable and symmetrical. Absent : calf tenderness, cyanotic, pedal edema
--- NOTE | 2017-05-01 10:18 | Electrocardiograph Report ---
[address] [address] Test Date: 2017-04-27 Pat Name: Mikala Rodas Department: 105 Room: 3B54 Gender: F Emblem Drawer In: CHAPIS : 1950 Requested By: Nickolas Saravia Order Number: [id number] Reading MD: Hadley Ramey MD Measurements Intervals [place] Rate: 103 P: 55 ME: 140 QRS: 74 QRSD: 86 T: 49 QT: 324 QTc: 384 Interpretive Statements SINUS TACHYCARDIA Electronically Signed On 05-01-2017 10:16:45 EDT by Hadley Ramey MD
== END 2017-04-30 12:21 | disposition home or self-care (01) ==
LOC: EMEROO 18:50 → 3BNU 18:50 → SUATTDRO 23:12 → 3BNU 23:41
PROVIDERS: ADMIT Internal Medicine; ATTEND Internal Medicine

== ENCOUNTER 2017-11-01 14:58 | Inpatient (IN) ==
[2017-11-01] MEDS ORDERED: Aspirin 81 MG TAB.CHEW PO ONE (15:38)
[2017-11-01] MEDS ORDERED: *HR* FentaNYL (PF) 100 MCG/2 ML VIAL IVP ONE (15:40)
[2017-11-01] MEDS ORDERED: Ipratropium/Albuterol Neb 3 ML IH ONE (15:40)
[2017-11-01] MEDS ORDERED: methylPREDNISolone 125 MG/2 ML VIAL IVP ONE (15:43)
[2017-11-01 15:53] LABS: Basophils # 0.1 K/mcL (0.0-0.2); Basophils % 0.4 %; Eosinophils # 0.5 K/mcL (0.0-0.6); Eosinophils % 3.9 %; Hematocrit 39.1 % (35.3-44.9); Hemoglobin 12.5 g/dL (11.5-15.4); Immature Granulocytes % 0.4 % (0-4); Lymphocytes # 3.8 K/mcL (0.6-4.6); Lymphocytes % 32.2 %; Mean Corpuscular Hemoglobin 27.9 pg (28.0-33.3); Mean Corpuscular Volume 87.3 fL (83.0-100.0); Mean Platelet Volume 10.5 fL (9.4-12.4); Monocytes # 1.1 K/mcL (0.0-1.3); Monocytes % 9.1 %; Neutrophils # 6.4 K/mcL (1.6-8.9); Platelet Count 300 K/mcL (140-400); Red Blood Count 4.48 M/mcL (3.82-4.97); Red Cell Distribution Width 13.2 % (11.5-14.5)
[2017-11-01 16:00] LABS: BUN/Creatinine Ratio 23 (6-26); Blood Urea Nitrogen 15 mg/dL (8-23); Calcium 9.7 mg/dL (8.6-10.3); Carbon Dioxide 28 mEq/L (23-29); Chloride 98 mEq/L (98-107); Glucose 136 mg/dL (70-105); Osmolality,Calculated 283 (280-300); Potassium 3.5 mEq/L (3.5-5.1); Sodium 135 mEq/L (136-145); eGFR For African Americans > 60 (> 60); eGFR For Non-African Americans > 60 (> 60)
--- NOTE | 2017-11-01 16:08 | Emergency Department Note ---
Disposition Clinical Impression: Chest pain Qualifiers: Chest pain type: intercostal pain Qualified Code(s): R07.82 - Intercostal pain COPD (chronic obstructive pulmonary disease) Qualifiers: COPD type: COPD with acute exacerbation Qualified Code(s): J44.1 - Chronic obstructive pulmonary disease with (acute) exacerbation Pneumonia Qualifiers: Pneumonia type: due to unspecified organism Laterality: bilateral Lung location : lower lobe of lung Qualified Code(s): J18.1 - Lobar pneumonia, unspecified organism Disposition: Admitted As Inpatient Condition: Good Time of Disposition: 18:45 General Adult HPI - General Chief complaint: ED Chest Pain Stated complaint: AVIS, chest pain Time Seen by Provider: 11/01/17 15:15 Source: patient Limitations: no limitations Nursing Notes Reviewed: Yes Vital Signs Reviewed: Yes - History of Present Illness HPI Narrative: 1 Month history of shortness of breath. Has tried a course of outpatient steroids with no relief. Does report a productive cough. Denies any fevers. Also reports chest pain that is a tightening feeling in her chest. No radiation. Pain Scale: 10 - Related Data Home Medications Medication Instructions Recorded Confirmed Paroxetine [Paxil] 20 mg PO HS 07/08/16 11/01/17 Triamterene/Hydrochlorothiazid 1 each PO DAILY 07/08/16 11/01/17 [Dyazide 37.5-25 Capsule] Albuterol Sulfate [Albuterol 2 puff IH Q4HR PRN 04/27/17 11/01/17 Inhaler] Ascorbate Calcium [Vitamin C] 500 mg PO DAILY 04/27/17 11/01/17 Budesonide Neb [Pulmicort Neb] 0.5 mg IH BID 04/27/17 11/01/17 Cholecalciferol (D-3) [Vitamin D] 1,000 unit PO DAILY 04/27/17 11/01/17 Ipratropium/Albuterol Neb [Duoneb] 3 ml IH Q6H 04/27/17 11/01/17 Loratadine [Allergy Relief] 10 mg PO DAILY 04/27/17 11/01/17 Acetaminophen [Tylenol] 1,500 mg PO HS PRN 11/01/17 11/01/17 Cyclobenzaprine HCl 5 mg PO TID PRN 11/01/17 11/01/17 Gabapentin [Neurontin] 100 mg PO TID 11/01/17 11/01/17 Oxygen 3 l NS AD 11/01/17 11/01/17 metFORMIN [Glucophage] 500 mg PO BID 11/01/17 11/01/17 Allergies Allergy/AdvReac Type Severity Reaction Status Date / Time acetaminophen [From Percocet] Allergy See Verified 09/06/17 19:34 Comments bupropion [From Wellbutrin] Allergy See Verified 09/06/17 19:34 Comments clonazepam Allergy See Verified 09/06/17 19:34 Comments Oxycodone [From Percocet] Allergy See Verified 09/06/17 19:34 Comments morphine AdvReac Hives Verified 09/06/17 19:34 pseudoephedrine AdvReac See Verified 09/06/17 19:34 [From Sudafed] Comments All systems ED: reviewed and negative except as stated. Constitutional: Denies: fever, chills ENT ED: Denies: congestion Cardiovascular: Reports: chest pain, dyspnea on exertion. Denies: palpitations Respiratory: Reports: cough, dyspnea, sputum production. Denies: wheezes Gastrointestinal: Denies: abdominal pain, nausea, vomiting Musculoskeletal: Reports: neck pain (To paraspinal muscles when she turns her neck.). Denies: back pain Integumentary: Denies: rash Neurological: Denies: headache, weakness Past Medical History - Past Medical History Attestation: Yes The following information was validated with the patient. 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 Absent: scleral icterus - ENT ENT exam: normal exam, normal oropharynx, mucous membranes moist - Neck Neck exam: Present: normal inspection, full ROM, trachea midline. Absent: tenderness - Chest Chest inspection: Present: normal inspection, symmetric chest wall rise. Absent : tenderness - Respiratory Respiratory exam: Present: respiratory distress, wheezes (Mild throughout). Absent: accessory muscle use - Cardiovascular Cardiovascular exam: Present: regular rate, tachycardia (100) - Abdominal Exam Abdominal exam: Present: soft, Non-Tender. Absent: distention - Extremities Exam Extremities exam: Present: normal inspection, full ROM, pedal edema (Pitting to lower extremities). Absent: tenderness - Back Exam Back exam: Present: normal inspection, full ROM. Absent: tenderness - Neurological Exam Neurological exam: Present: alert, oriented X3 - Psychiatric Psychiatric exam: Present: normal affect, normal mood - Skin Skin exam: Present: warm, dry, intact Course Course Narrative: Female patient presenting to the emergency department complaining of chest pain and shortness of breath. She presented to the resident clinic earlier today complaining of shortness of breath and was transported over here due to tachycardia and the inability to get a chest x-ray. Patient is tachycardic at 190s to her room. She reports shortness of breath associated with her COPD. She states that she is chronically short of breath however it is slightly worse over the past week. She does report a productive cough with yellow sputum. She also reports chest pain that has been present today. She describes it as a tightness in her chest across her chest. She denies any radiation of this pain. Her lung sounds have scant wheezing throughout. She states that she did use a course of steroids approximately one month ago to attempt to alleviate her shortness of breath with no relief. She has not been on antibiotics in over a month. He will get a chest x-ray and basic lab workup on patient. We will also provide her with steroids at this time. - Reevaluation(s) Reevaluation #1: Bibasilar pneumonia. We will admit her to the hospital on [facility] for a failed outpatient COPD exacerbation as well as pneumonia. She is agreeable to this. - Consultations Consultation #1: Dr Valenzuela accepted patient in stable condition Time: 16:45 Vital Signs Temperature 99 F 11/01/17 15:07 Pulse Rate 104 11/01/17 15:07 Respiratory Rate 18 11/01/17 15:07 Blood Pressure 130/62 11/01/17 15:07 O2 Sat by Pulse Oximetry 96 11/01/17 15:07 Temperature 97.6 F 11/01/17 21:48 Pulse Rate 96 11/01/17 21:48 Respiratory Rate 16 11/01/17 23:22 Blood Pressure 119/74 11/01/17 21:48 O2 Sat by Pulse Oximetry 98 11/01/17 23:22 Oxygen Delivery Oxygen Delivery Room Air,Nasal Cannula Medical Decision Making - Medical Records Medical records reviewed: Yes I reviewed the patient's medical records. - Lab Data Lab results reviewed: Yes I reviewed the patient's lab results. Result diagrams: 11/01/17 15:24 11/01/17 15:24 Lab Results 11/01/17 11/01/17 11/01/17 Range/Units 15:24 15:24 15:24 WBC 11.9 H (4.3-11.1) K/mcL RBC 4.48 (3.82-4.97) M/mcL Hgb 12.5 (11.5-15.4) g/dL Hct 39.1 (35.3-44.9) % MCV 87.3 (83.0-100.0) fL MCH 27.9 L (28.0-33.3) pg MCHC 32.0 (31.6-35.5) g/dL RDW 13.2 (11.5-14.5) % Plt Count 300 (140-400) K/mcL MPV 10.5 (9.4-12.4) fL Immature Gran % 0.4 (0-4) % Seg Neutrophils % 54.0 % Lymphocytes % 32.2 % Monocytes % 9.1 % Eosinophils % 3.9 % Basophils % 0.4 % Neutrophils # 6.4 (1.6-8.9) K/mcL Lymphocytes # 3.8 (0.6-4.6) K/mcL Monocytes # 1.1 (0.0-1.3) K/mcL Eosinophils # 0.5 (0.0-0.6) K/mcL Basophils # 0.1 (0.0-0.2) K/mcL VBG pH (7.32-7.42) pH Units VBG pCO2 (41-51) mmHg VBG pO2 (25-50) mmHg VBG HCO3 (21-27) mEq/L Sodium 135 L (136-145) mEq/L Potassium 3.5 (3.5-5.1) mEq/L Chloride 98 (98-107) mEq/L Carbon Dioxide 28 (23-29) mEq/L BUN 15 (8-23) mg/dL Creatinine 0.65 (0.60-1.20) mg/dL Est GFR ( Amer) > 60 (> 60) Est GFR (Non-Af Amer) > 60 (> 60) BUN/Creatinine Ratio 23 (6-26) Glucose 136 H (70-105) mg/dL Calculated Osmolality 283 (280-300) Lactic Acid 2.1 (0.5-2.2) mmol/L Calcium 9.7 (8.6-10.3) mg/dL Total Bilirubin 0.2 L (0.3-1.0) mg/dL Direct Bilirubin 0.0 (0.0-0.2) mg/dL Indirect Bilirubin 0.2 (0.0-1.2) mg/dL AST 17 (13-39) Units/L ALT 19 (7-52) Units/L Alkaline Phosphatase 54 (34-104) Units/L Troponin I < 0.03 (< 0.04) ng/mL B-Natriuretic Peptide (Less than 100) pg/mL Serum Total Protein 7.3 (6.4-8.9) g/dL Albumin 4.1 (3.5-5.7) g/dL Globulin 3.2 (2.4-3.5) g/dL Albumin/Globulin Ratio 1.3 (1.1-2.2) Lipase 30 (11-82) Units/L 11/01/17 11/01/17 11/01/17 Range/Units 15:24 16:25 20:15 WBC (4.3-11.1) K/mcL RBC (3.82-4.97) M/mcL Hgb (11.5-15.4) g/dL Hct (35.3-44.9) % MCV (83.0-100.0) fL MCH (28.0-33.3) pg MCHC (31.6-35.5) g/dL RDW (11.5-14.5) % Plt Count (140-400) K/mcL MPV (9.4-12.4) fL Immature Gran % (0-4) % Seg Neutrophils % % Lymphocytes % % Monocytes % % Eosinophils % % Basophils % % Neutrophils # (1.6-8.9) K/mcL Lymphocytes # (0.6-4.6) K/mcL Monocytes # (0.0-1.3) K/mcL Eosinophils # (0.0-0.6) K/mcL Basophils # (0.0-0.2) K/mcL VBG pH 7.38 (7.32-7.42) pH Units VBG pCO2 54 H (41-51) mmHg VBG pO2 109 H (25-50) mmHg VBG HCO3 32 H (21-27) mEq/L Sodium (136-145) mEq/L Potassium (3.5-5.1) mEq/L Chloride (98-107) mEq/L Carbon Dioxide (23-29) mEq/L BUN (8-23) mg/dL Creatinine (0.60-1.20) mg/dL Est GFR ( Amer) (> 60) Est GFR (Non-Af Amer) (> 60) BUN/Creatinine Ratio (6-26) Glucose (70-105) mg/dL Calculated Osmolality (280-300) Lactic Acid (0.5-2.2) mmol/L Calcium (8.6-10.3) mg/dL Total Bilirubin (0.3-1.0) mg/dL Direct Bilirubin (0.0-0.2) mg/dL Indirect Bilirubin (0.0-1.2) mg/dL AST (13-39) Units/L ALT (7-52) Units/L Alkaline Phosphatase (34-104) Units/L Troponin I < 0.03 (< 0.04) ng/mL B-Natriuretic Peptide 32 (Less than 100) pg/mL Serum Total Protein (6.4-8.9) g/dL Albumin (3.5-5.7) g/dL Globulin (2.4-3.5) g/dL Albumin/Globulin Ratio (1.1-2.2) Lipase (11-82) Units/L - Radiology Data Radiology results reviewed: Yes I reviewed the patient's radiology results. Chest X-Ray 11/01/17 15:10 IMPRESSION: Mild bibasilar airspace opacities, atelectasis favored over pneumonia. D/ / 11/01/2017 16:21:23 Charanjit Clayton MD / [facility] Interpreting Provider: Charanjit Clayton MD - EKG Data EKG #1 EKG attestation: Yes I reviewed and interpreted this EKG. EKG results narrative: Normal sinus rhythm at a rate of 98. NH interval is 152. Serous duration is 76. QT is 311 very QTc is 366. No signs of acute ischemia. No previous EKG to compare to. Attestation Statement - Attestation Attestation: I examined this patient and my medical decision-making was reviewed with the Resident Physician. I agree with the documented findings, disposition and treatment plan as described except to the extent set forth below. Findings consistent with possible COPD exacerbation. Patient responded to bronchodilators but is still having significant weakness related to her underlying respiratory distress. There was also findings of possible pneumonia. Antibiotics were initiated. Blood cultures were sent. Patient be admitted for further evaluation of COPD exacerbation in the setting of possible pneumonia.
[2017-11-01] MEDS ORDERED: *HR* LORazepam 2 MG/ML VIAL IVP ONE (16:26)
[2017-11-01 16:28] LABS: VBG HCO3 32 mEq/L (21-27); VBG PCO2 54 mmHg (41-51); VBG PH 7.38 pH Units (7.32-7.42); VBG PO2 109 mmHg (25-50)
[2017-11-01] MEDS ORDERED: Levofloxacin 750 MG/150 ML 750 MG/150 ML BAG IVPB ONE (16:36)
[2017-11-01 16:41] LABS: Troponin I < 0.03 ng/mL (< 0.04)
[2017-11-01 16:50] LABS: Alanine Aminotransferase 19 Units/L (7-52); Albumin 4.1 g/dL (3.5-5.7); Albumin/Globulin Ratio 1.3 (1.1-2.2); Alkaline Phosphatase 54 Units/L (34-104); Aspartate Amino Transferase 17 Units/L (13-39); Bilirubin,Indirect 0.2 mg/dL (0.0-1.2); Bilirubin,Total 0.2 mg/dL (0.3-1.0); Globulin 3.2 g/dL (2.4-3.5); Lipase 30 Units/L (11-82); Total Protein 7.3 g/dL (6.4-8.9)
--- NOTE | 2017-11-01 19:53 | Internal Med History&Physical ---
Date of Encounter: 11/01/17 Time of Encounter: 19:50 Assessment and Plan (1) Chest pain Current visit: Yes Status: Acute Patient with multiple cardiac risk factors obesity hypertension diabetes with chest pain for about 6 hours so far troponin is negative with transient troponin was stable admitted nuclear stress test and 2-D echo Qualifiers: Chest pain type: intercostal pain Qualified Code(s): R07.82 - Intercostal pain (2) Pneumonia Current visit: Yes Status: Acute Patient has a productive cough of yellow and thick greenish sputum consistent with bronchitis chest x-ray suggestive of pneumonia we will place on Levaquin IV. 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 Rodas is a 67 year old female Patient with history of COPD, diabetes, hypertension, arthritis, and obesity. Patient was treated as an outpatient of COPD with the steroid the patient was not getting better continued to have increased shortness of breath was seen today resident clinic and then sent to the emergency room because of tachycardia and increased shortness of breath patient reports productive cough of yellow thick sputum and sometimes greenish and today developed chest pain which has been for about 6 hours and feel like a tightness in her chest. Patient emergency room chest x-ray is suggestive of possible pneumonia and admitted for COPD exacerbation. No prior cardiac event history, Past Med Surg Social Fam HX - Past Medical History Medical history: arthritis, COPD, diabetes, hypertension Psychiatric history: no psych history - Past Surgical History Surgical History: appendectomy, cholecystectomy - Social History Smoking Status: Never smoker Smokeless Tobacco Status: No Alcohol use: none Drug use: none - Family History Father Living Status: Hx Family Cardiac Disorders: Yes Hx Family Endocrine Disorder: Yes (DM) Sister Living Status: Hx Family Respiratory Disorders: Yes (COPD.) Internal Medicine - H&P: Meds Paroxetine [Paxil] 20 mg PO HS 07/08/16 [History] Triamterene/Hydrochlorothiazid [Dyazide 37.5-25 Capsule] 1 each PO DAILY [History] Albuterol Sulfate [Albuterol Inhaler] 2 puff IH Q4HR PRN 04/27/17 [History] Ascorbate Calcium [Vitamin C] 500 mg PO DAILY 04/27/17 [History] Budesonide Neb [Pulmicort Neb] 0.5 mg IH BID 04/27/17 [History] Cholecalciferol (D-3) [Vitamin D] 1,000 unit PO DAILY 04/27/17 [History] Ipratropium/Albuterol Neb [Duoneb] 3 ml IH Q6H 04/27/17 [History] Loratadine [Allergy Relief] 10 mg PO DAILY 04/27/17 [History] Acetaminophen [Tylenol] 1,500 mg PO HS PRN 11/01/17 [History] Cyclobenzaprine HCl 5 mg PO TID PRN 11/01/17 [History] Gabapentin [Neurontin] 100 mg PO TID 11/01/17 [History] Oxygen 3 l NS AD 11/01/17 [History] metFORMIN [Glucophage] 500 mg PO BID 11/01/17 [History] 3 Allergy/AdvReac Type Severity Reaction Status Date / Time acetaminophen [From Percocet] Allergy See Verified 09/06/17 19:34 Comments bupropion [From Wellbutrin] Allergy See Verified 09/06/17 19:34 Comments clonazepam Allergy See Verified 09/06/17 19:34 Comments Oxycodone [From Percocet] Allergy See Verified 09/06/17 19:34 Comments morphine AdvReac Hives Verified 09/06/17 19:34 pseudoephedrine AdvReac See Verified 09/06/17 19:34 [From Sudafed] Comments All Systems PM: A 10-system review of systems was performed and is negative for pertinent findings except as documented above in the HPI. - Constitutional Constitutional: no chills, no fever(s), no night sweats - EENT Eyes: no change in vision, no discharge, no pain, no photophobia Ears: no ear discharge, no ear pain, no tinnitus Nose, mouth and throat: no dysphagia, no nasal discharge, no neck pain, no sore throat - Cardiovascular Cardiovascular ROS IM: chest pain, dyspnea - Respiratory Respiratory: cough, dyspnea on exertion, wheezing - Gastrointestinal Gastrointestinal: no abdominal pain, no diarrhea, no hematemesis, no hematochezia, no melena, no nausea, no vomiting - Genitourinary Genitourinary: no change in urinary stream, no dysuria, no flank pain, no hematuria - Constitutional Vitals: Temp Pulse Resp BP Pulse Ox 99 F 101 20 104/64 97 11/01/17 15:07 11/01/17 18:51 11/01/17 18:51 11/01/17 18:51 11/01/17 18:51 General appearance: Present: obese - Eye Eye exam: Present: PERRL, conjuntiva pink, sclera anicteric Pupils: Present: PERRL - Neck Neck exam general surgery: Present: supple, trachea midline. Absent: lymphadenopathy - Respiratory Respiratory exam: Present: rhonchi, wheezes - Cardiovascular Cardiovascular exam: Present: RRR, +S1, +S2. Absent: diastolic murmur, gallop, rubs, systolic murmur - GI/Abdominal GI/Abdominal exam: Present: normal bowel sounds, soft, no peritoneal signs. Absent: distended, tenderness - Extremities Exam Extremities exam: Present: warm, radial pulses palpable and symmetrical. Absent : calf tenderness, cyanotic, pedal edema Internal Med - H&P Results - Labs CBC & Chem 7: 11/01/17 15:24 11/01/17 15:24
[2017-11-01] MEDS ORDERED: traMADol 50 MG TABLET PO PRN (19:58)
[2017-11-01] MEDS ORDERED: Naloxone 0.4 MG/ML INJ IVP PRN (19:58)
[2017-11-01] MEDS ORDERED: Acetaminophen 325 MG TABLET PO PRN (19:58)
[2017-11-01] MEDS ORDERED: 0.9 % Sodium Chloride 1,000 ML IVC SCH (20:00)
[2017-11-01] MEDS ORDERED: Ipratropium/Albuterol Neb 3 ML IH PRN (20:01)
[2017-11-01] MEDS ORDERED: D5% in Water 1,000 ML IVC PRN (20:03)
[2017-11-01] MEDS ORDERED: *HR* Dextrose 50 % in Water (Syg) 50 ML SYRINGE IVP PRN (20:03)
[2017-11-01] MEDS ORDERED: Dextrose Gel 15 GM/37.5 ML TUBE PO PRN ×2 (20:03)
[2017-11-01] MEDS: MethylPREDNISolone 40 MG/ML VIAL IVP SCH (23:01)
[2017-11-01] MEDS: Gabapentin 100 MG CAPSULE PO SCH (23:01)
[2017-11-01] MEDS: Ipratropium/Albuterol Neb 3 ML IH SCH (23:22)
[2017-11-02 02:26] LABS: Hematocrit 36.9 % (35.3-44.9); Hemoglobin 11.9 g/dL (11.5-15.4); Mean Corpuscular HGB Conc 32.2 g/dL (31.6-35.5); Mean Corpuscular Hemoglobin 28.3 pg (28.0-33.3); Mean Corpuscular Volume 87.6 fL (83.0-100.0); Mean Platelet Volume 10.7 fL (9.4-12.4); Platelet Count 277 K/mcL (140-400); Red Blood Count 4.21 M/mcL (3.82-4.97); Red Cell Distribution Width 13.3 % (11.5-14.5)
[2017-11-02 02:45] LABS: Alanine Aminotransferase 18 Units/L (7-52); Albumin 4.1 g/dL (3.5-5.7); Albumin/Globulin Ratio 1.2 (1.1-2.2); Alkaline Phosphatase 54 Units/L (34-104); Aspartate Amino Transferase 14 Units/L (13-39); BUN/Creatinine Ratio 22 (6-26); Bilirubin,Total 0.2 mg/dL (0.3-1.0); Blood Urea Nitrogen 16 mg/dL (8-23); Calcium 9.4 mg/dL (8.6-10.3); Carbon Dioxide 23 mEq/L (23-29); Chloride 96 mEq/L (98-107); Chol/HDL Ratio 2.7 (0-4.9); Cholesterol 138 mg/dL (< 200); Globulin 3.3 g/dL (2.4-3.5); Glucose 338 mg/dL (70-105); HDL Cholesterol 52 mg/dL (40-59); LDL Cholesterol,Calculated 69 mg/dL (0-99); Magnesium 1.7 mg/dL (1.6-2.6); Osmolality,Calculated 288 (280-300); Sodium 132 mEq/L (136-145); Total Protein 7.4 g/dL (6.4-8.9); Triglycerides 85 mg/dL (< 150); eGFR For African Americans > 60 (> 60); eGFR For Non-African Americans > 60 (> 60)
[2017-11-02] MEDS: Ipratropium/Albuterol Neb 3 ML IH SCH ×6 (03:35→23:41)
[2017-11-02] MEDS ORDERED: Regadenoson 0.4 MG/5 ML SYRINGE IVP ONE (05:26)
[2017-11-02] MEDS: *HR* Enoxaparin 40 MG/0.4 ML SYRINGE SQ SCH (05:46)
[2017-11-02] MEDS: Cholecalciferol (D-3) 1,000 UNIT TABLET PO SCH (08:16)
[2017-11-02] MEDS: Ascorbic Acid 500 MG TABLET PO SCH (08:16)
[2017-11-02] MEDS: Gabapentin 100 MG CAPSULE PO SCH ×3 (08:16→20:14)
[2017-11-02] MEDS: Loratadine 10 MG TABLET PO SCH (08:16)
[2017-11-02] MEDS: Insulin LISPRO 300 UNITS/3 ML VIAL SQ SCH ×4 (08:17→20:57)
[2017-11-02] MEDS: MethylPREDNISolone 40 MG/ML VIAL IVP SCH ×3 (08:17→23:00)
--- NOTE | 2017-11-02 12:27 | Internal Med Progress Note ---
Date of Encounter: 11/02/17 Time of Encounter: 12:25 - Assessment and plan (1) Pneumonia Current Visit: Yes Status: Acute Assessment and plan: Reviewed CXR showed b/l patchy infiltrates Mostly bacterial PNA cont empirical abx Levaquin Cont Duoneb + O2 Will check step pneumonia, Legionella antigen, sputum culture and respiratory viral panel Qualifiers: Pneumonia type: due to unspecified organism Laterality: bilateral Lung location: lower lobe of lung Qualified Code(s): J18.1 - Lobar pneumonia, unspecified organism (2) Acute exacerbation of chronic obstructive pulmonary disease (COPD) Current Visit: No Status: Acute Assessment and plan: She does have diffuse wheezing cont high dose IV steroids Duoneb + O2 (3) Chronic respiratory failure with hypoxia Current Visit: Yes Status: Acute Assessment and plan: does use 3 lit at home (4) Chest pain Current Visit: Yes Status: Acute Assessment and plan: So far negative troponin no acute EKG changes She is high risk for ACS agree with stress test.. Qualifiers: Chest pain type: intercostal pain Qualified Code(s): R07.82 - Intercostal pain (5) Diabetes mellitus type 2 in obese Current Visit: No Status: Chronic Assessment and plan: on ISS (6) Hypertension Current Visit: No Status: Chronic Assessment and plan: Stable with home medications Qualifiers: Hypertension type: essential hypertension Qualified Code(s): I10 - Essential (primary) hypertension - Subjective Interval history: Ms. Rodas is a 67 year old female with knwon history of COPD, diabetes, hypertension, arthritis, and obesity Patient presented to ER from resident clinic with SOB and tachycardia. Pt was treated as an outpatient of COPD with the steroid recently. She was not getting better continued to have increased shortness of breath. Patient reports productive cough of yellow thick sputum. She did c/o chest pain y/d located substernally. Now pt denied any CP . Still has SOB and MUNOZ. Still has cough. - Constitutional Vitals: Temp Pulse Resp BP Pulse Ox 97.9 F 95 16 116/69 97 11/02/17 11:23 11/02/17 11:23 11/02/17 11:23 11/02/17 11:23 11/02/17 11:23 General appearance: Present: cooperative, A&O X 3, obese, answers questions appropriately - Head Head exam: Present: atraumatic, normal inspection - Neck Neck exam general surgery: Present: supple - Respiratory Respiratory exam: Present: decreased breath sounds, wheezes (diffuse). Absent: rales, respiratory distress, rhonchi - Cardiovascular Cardiovascular exam: Present: +S1, +S2, tachycardia - GI/Abdominal GI/Abdominal exam: Present: normal bowel sounds, soft. Absent: rebound, rigid, tenderness - Extremities Exam Extremities exam: Absent: calf tenderness, pedal edema, tenderness - Back Exam Back exam: Absent: CVA tenderness (L), CVA tenderness (R) - Psychiatric Psychiatric exam: Present: normal affect, normal mood - Skin Skin exam: Absent: rash Internal Medicine: Result - Labs CBC & Chem 7: 11/02/17 01:50 11/02/17 01:50 Labs: Short CBC 11/02/17 Range/Units 01:50 WBC 8.8 (4.3-11.1) K/mcL Hgb 11.9 (11.5-15.4) g/dL Hct 36.9 (35.3-44.9) % Plt Count 277 (140-400) K/mcL BMP 11/02/17 01:50 Sodium 132 L Potassium 4.0 Chloride 96 L Carbon Dioxide 23 BUN 16 Creatinine 0.72 Glucose 338 H Calcium 9.4 Cardiac Enzymes 11/02/17 11/02/17 Range/Units 01:50 07:51 Troponin I < 0.03 < 0.03 (< 0.04) ng/mL Liver Function 11/02/17 Range/Units 01:50 Total Bilirubin 0.2 L (0.3-1.0) mg/dL AST 14 (13-39) Units/L ALT 18 (7-52) Units/L Alkaline Phosphatase 54 (34-104) Units/L Albumin 4.1 (3.5-5.7) g/dL Consult Discharge Plan - Plan Referrals: Romario Samson DO [Primary Care Provider] - 11/08/17 1:30 pm
[2017-11-02] MEDS: levoFLOXacin 750 MG TABLET PO SCH (13:49)
[2017-11-02 16:27] LABS: Adenovirus Not Detected (Not Detect); Bordetella Pertussis Not Detected (Not Detect); Chlamydophila pneumoniae Not Detected (Not Detect); Coronavirus 229E Not Detected (Not Detect); Coronavirus HKU1 Not Detected (Not Detect); Coronavirus NL63 Not Detected (Not Detect); Coronavirus OC43 Not Detected (Not Detect); Human Metapneumovirus Not Detected (Not Detect); Human Rhinovirus/Enterovirus Not Detected (Not Detect); Influenza A Subtype 2009 H1 Not Detected (Not Detect); Influenza A Untypeable Not Detected (Not Detect); Influenza B Not Detected (Not Detect); Mycoplasma pneumoniae Not Detected (Not Detect); Parainfluenza Virus 1 Not Detected (Not Detect); Parainfluenza Virus 2 Not Detected (Not Detect); Parainfluenza Virus 3 Not Detected (Not Detect); Parainfluenza Virus 4 Not Detected (Not Detect); Respiratory Syncytial Virus Not Detected (Not Detect)
[2017-11-03 03:39] LABS: Basophils % 0.1 %; Hematocrit 33.5 % (35.3-44.9); Hemoglobin 10.7 g/dL (11.5-15.4); Immature Platelets 5.9 % (1.1-6.1); Lymphocytes # 1.3 K/mcL (0.6-4.6); Lymphocytes % 7.1 %; Mean Corpuscular HGB Conc 31.9 g/dL (31.6-35.5); Mean Corpuscular Hemoglobin 27.8 pg (28.0-33.3); Mean Platelet Volume 10.5 fL (9.4-12.4); Monocytes # 0.6 K/mcL (0.0-1.3); Monocytes % 3.4 %; Neutrophils # 15.4 K/mcL (1.6-8.9); Nucleated Red Blood Cells 0.1 /100 WBC (0); Platelet Count 278 K/mcL (140-400); Red Blood Count 3.85 M/mcL (3.82-4.97); Red Cell Distribution Width 13.5 % (11.5-14.5); Segmented Neutrophils % 87.4 %
[2017-11-03 03:52] LABS: BUN/Creatinine Ratio 23 (6-26); Blood Urea Nitrogen 15 mg/dL (8-23); Calcium 9.4 mg/dL (8.6-10.3); Carbon Dioxide 26 mEq/L (23-29); Chloride 99 mEq/L (98-107); Glucose 263 mg/dL (70-105); Osmolality,Calculated 288 (280-300); Sodium 134 mEq/L (136-145); eGFR For African Americans > 60 (> 60); eGFR For Non-African Americans > 60 (> 60)
[2017-11-03] MEDS: Ipratropium/Albuterol Neb 3 ML IH SCH ×5 (03:56→19:55)
[2017-11-03] MEDS: *HR* Enoxaparin 40 MG/0.4 ML SYRINGE SQ SCH (04:59)
[2017-11-03] MEDS ORDERED: Regadenoson 0.4 MG/5 ML SYRINGE IVP ONE (05:54)
[2017-11-03] MEDS: Cholecalciferol (D-3) 1,000 UNIT TABLET PO SCH (10:04)
[2017-11-03] MEDS: levoFLOXacin 750 MG TABLET PO SCH (10:04)
[2017-11-03] MEDS: Loratadine 10 MG TABLET PO SCH (10:04)
[2017-11-03] MEDS: Ascorbic Acid 500 MG TABLET PO SCH (10:04)
[2017-11-03] MEDS: Gabapentin 100 MG CAPSULE PO SCH ×3 (10:04→21:17)
[2017-11-03] MEDS: Insulin LISPRO 300 UNITS/3 ML VIAL SQ SCH ×4 (10:04→21:23)
--- NOTE | 2017-11-03 13:03 | Internal Med Progress Note ---
Date of Encounter: 11/03/17 Time of Encounter: 10:45 - Assessment and plan (1) Pneumonia Current Visit: Yes Status: Acute Assessment and plan: Reviewed CXR showed b/l patchy infiltrates Mostly bacterial PNA cont empirical abx Levaquin Cont Duoneb + O2 Step pneumonia, Legionella antigen, sputum culture and respiratory viral panel - negative so far Elevated WBC today mostly reactive Qualifiers: Pneumonia type: due to unspecified organism Laterality: bilateral Lung location: lower lobe of lung Qualified Code(s): J18.1 - Lobar pneumonia, unspecified organism (2) Acute exacerbation of chronic obstructive pulmonary disease (COPD) Current Visit: No Status: Acute Assessment and plan: Improving start tapering IV steroids Duoneb + O2 (3) Chronic respiratory failure with hypoxia Current Visit: Yes Status: Acute Assessment and plan: does use 3 lit at home (4) Chest pain Current Visit: Yes Status: Acute Assessment and plan: So far negative troponin no acute EKG changes She is high risk for ACS Had stress test today..will f/u on results Qualifiers: Chest pain type: intercostal pain Qualified Code(s): R07.82 - Intercostal pain (5) Diabetes mellitus type 2 in obese Current Visit: No Status: Chronic Assessment and plan: on ISS (6) Hypertension Current Visit: No Status: Chronic Assessment and plan: Stable with home medications Qualifiers: Hypertension type: essential hypertension Qualified Code(s): I10 - Essential (primary) hypertension - Subjective Interval history: Ms. Rodas is a 67 year old female with knwon history of COPD, diabetes, hypertension, arthritis, and obesity Patient presented to ER from resident clinic with SOB and tachycardia. Pt was treated as an outpatient of COPD with the steroid recently. She was not getting better continued to have increased shortness of breath. Patient reports productive cough of yellow thick sputum. She did c/o chest pain prior to admission, located substernally. Now pt denied any CP . Still has SOB and MUNOZ. Still has cough bringing yellowish sputum. Over all feels better today. - Constitutional Vitals: Temp Pulse Resp BP Pulse Ox 97.7 F 89 18 134/84 100 11/03/17 11:03 11/03/17 11:03 11/03/17 11:14 11/03/17 11:03 11/03/17 11:14 General appearance: Present: cooperative, A&O X 3, obese, answers questions appropriately - Head Head exam: Present: atraumatic, normal inspection - Neck Neck exam general surgery: Present: supple - Respiratory Respiratory exam: Present: decreased breath sounds, wheezes (moderate). Absent : rales, respiratory distress, rhonchi - Cardiovascular Cardiovascular exam: Present: RRR, +S1, +S2. Absent: tachycardia - GI/Abdominal GI/Abdominal exam: Present: normal bowel sounds, soft. Absent: rebound, rigid, tenderness - Extremities Exam Extremities exam: Absent: calf tenderness, pedal edema, tenderness - Back Exam Back exam: Absent: CVA tenderness (L), CVA tenderness (R) - Neurological Exam Neurological exam: Present: alert, oriented X3 - Psychiatric Psychiatric exam: Present: normal affect, normal mood - Skin Skin exam: Absent: rash Internal Medicine: Result - Labs CBC & Chem 7: 11/03/17 03:15 11/03/17 03:15 Labs: Short CBC 11/03/17 Range/Units 03:15 WBC 17.6 H D (4.3-11.1) K/mcL Hgb 10.7 L (11.5-15.4) g/dL Hct 33.5 L (35.3-44.9) % Plt Count 278 (140-400) K/mcL Neutrophils # 15.4 H (1.6-8.9) K/mcL BMP 11/03/17 03:15 Sodium 134 L Potassium 4.0 Chloride 99 Carbon Dioxide 26 BUN 15 Creatinine 0.64 Glucose 263 H Calcium 9.4 Consult Discharge Plan - Plan Referrals: Romario Samson DO [Primary Care Provider] - 11/08/17 1:30 pm
[2017-11-04] MEDS: Ipratropium/Albuterol Neb 3 ML IH SCH ×3 (00:12→07:18)
[2017-11-04 05:02] LABS: Basophils % 0.2 %; Eosinophils % 0.1 %; Hematocrit 35.5 % (35.3-44.9); Hemoglobin 11.3 g/dL (11.5-15.4); Immature Granulocytes % 0.6 % (0-4); Lymphocytes % 35.1 %; Mean Corpuscular HGB Conc 31.8 g/dL (31.6-35.5); Mean Corpuscular Volume 87.9 fL (83.0-100.0); Mean Platelet Volume 10.9 fL (9.4-12.4); Monocytes # 1.4 K/mcL (0.0-1.3); Monocytes % 8.9 %; Platelet Count 269 K/mcL (140-400); Red Blood Count 4.04 M/mcL (3.82-4.97); Segmented Neutrophils % 55.1 %
[2017-11-04 05:03] LABS: Lymphocytes # 5.7 K/mcL (0.6-4.6); Neutrophils # 8.9 K/mcL (1.6-8.9)
[2017-11-04] MEDS: *HR* Enoxaparin 40 MG/0.4 ML SYRINGE SQ SCH (05:43)
[2017-11-04] MEDS: Cholecalciferol (D-3) 1,000 UNIT TABLET PO SCH (07:12)
[2017-11-04] MEDS: Gabapentin 100 MG CAPSULE PO SCH (07:12)
[2017-11-04] MEDS: levoFLOXacin 750 MG TABLET PO SCH (07:12)
[2017-11-04] MEDS: Loratadine 10 MG TABLET PO SCH (07:12)
[2017-11-04] MEDS: Ascorbic Acid 500 MG TABLET PO SCH (07:12)
[2017-11-04 08:06] VITALS: BP 119/67
[2017-11-04] MEDS: Insulin LISPRO 300 UNITS/3 ML VIAL SQ SCH (08:56)
[2017-11-04] MEDS ORDERED: MethylPREDNISolone 40 MG/ML VIAL IVP SCH (09:00)
--- NOTE | 2017-11-04 09:56 | Discharge Summary ---
Date of Encounter: 11/04/17 Time of Encounter: 09:52 - Discharge Diagnosis (1) Pneumonia Priority: Primary Status: Acute Qualifiers: Pneumonia type: due to unspecified organism Laterality: bilateral Lung location: lower lobe of lung Qualified Code(s): J18.1 - Lobar pneumonia, unspecified organism (2) Acute exacerbation of chronic obstructive pulmonary disease (COPD) Priority: Primary Status: Acute (3) Chronic respiratory failure with hypoxia Priority: Secondary Status: Acute (4) Chest pain Priority: Primary Status: Acute Qualifiers: Chest pain type: intercostal pain Qualified Code(s): R07.82 - Intercostal pain (5) Diabetes mellitus type 2 in obese Priority: Secondary Status: Chronic (6) Hypertension Priority: Secondary Status: Chronic Qualifiers: Hypertension type: essential hypertension Qualified Code(s): I10 - Essential (primary) hypertension Hospital course: Ms. Rodas is a 67 year old female with knwon history of COPD, diabetes, hypertension, arthritis, and obesity Patient presented to ER from resident clinic with SOB and tachycardia. Pt was treated as an outpatient of COPD with the steroid recently. She was not getting better continued to have increased shortness of breath. Patient reports productive cough of yellow thick sputum. She did c/o chest pain prior to admission, located substernally. Pt was admitted in the hospital and started her on empirical abx and IV steroids. Her symptoms started improving slowly. 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 She did have nuclear stress test which showed small sized fixed defect inferior segment mostly artifact. Her perfusion imaging was negative for ischemia or infract. Pt states she is back to baseline. Will d/c her home today in stable condition. - Time Spent with Patient Total time spent providing and/or coordinating discharge services: - Discharge Medications Prescriptions: levoFLOXacin [Levaquin] 750 mg PO DAILY #2 tablet predniSONE [PredniSONE] 40 mg PO DAILY #10 tablet Home Medications: Paroxetine [Paxil] 20 mg PO DAILY 07/08/16 [History] Triamterene/Hydrochlorothiazid [Dyazide 37.5-25 Capsule] 1 each PO DAILY [History] Albuterol Sulfate [Albuterol Inhaler] 2 puff IH Q4HR PRN 04/27/17 [History] Ascorbate Calcium [Vitamin C] 500 mg PO DAILY 04/27/17 [History] Budesonide Neb [Pulmicort Neb] 0.5 mg IH BID 04/27/17 [History] Cholecalciferol (D-3) [Vitamin D] 1,000 unit PO DAILY 04/27/17 [History] Ipratropium/Albuterol Neb [Duoneb] 3 ml IH Q6H 04/27/17 [History] Loratadine [Allergy Relief] 10 mg PO DAILY 04/27/17 [History] Cyclobenzaprine HCl 5 mg PO TID PRN 11/01/17 [History] Gabapentin [Neurontin] 100 mg PO TID 11/01/17 [History] Oxygen 3 l NS AD 11/01/17 [History] metFORMIN [Glucophage] 500 mg PO BID 11/01/17 [History] levoFLOXacin [Levaquin] 750 mg PO DAILY #2 tablet 11/04/17 [Rx] predniSONE [PredniSONE] 40 mg PO DAILY #10 tablet 11/04/17 [Rx] Allergies/Adverse Reactions: 3 Allergy/AdvReac Type Severity Reaction Status Date / Time acetaminophen [From Percocet] Allergy See Verified 09/06/17 19:34 Comments bupropion [From Wellbutrin] Allergy See Verified 09/06/17 19:34 Comments clonazepam Allergy See Verified 09/06/17 19:34 Comments Oxycodone [From Percocet] Allergy See Verified 09/06/17 19:34 Comments morphine AdvReac Hives Verified 09/06/17 19:34 pseudoephedrine AdvReac See Verified 09/06/17 19:34 [From Sudafed] Comments Date of admission: 11/01/17 23:52 Primary care physician: Romario Samson, DO - Constitutional Vitals: Temp Pulse Resp BP Pulse Ox 97.4 F L 94 18 119/67 96 11/04/17 08:04 11/04/17 08:04 11/04/17 08:04 11/04/17 08:04 11/04/17 08:04 General appearance: Present: cooperative, A&O X 3, obese, answers questions appropriately - Head Head exam: Present: normal inspection - Neck Neck exam general surgery: Present: supple - Respiratory Respiratory exam: Present: decreased breath sounds, wheezes (mild). Absent: rales, respiratory distress, rhonchi - Cardiovascular Cardiovascular exam: Present: RRR, +S1, +S2. Absent: tachycardia - GI/Abdominal GI/Abdominal exam: Present: normal bowel sounds, soft. Absent: rebound, rigid, tenderness - Extremities Exam Extremities exam: Absent: calf tenderness, pedal edema, tenderness - Back Exam Back exam: Absent: CVA tenderness (L), CVA tenderness (R) - Patient Status Disposition: Home, Self-Care Condition: Good - Discharge Instructions Instructions: Chronic Obstructive Pulmonary Disease (DC), Pneumonia (DC) Follow Up With: WOOL SORTER Lisa [Provider Group] - 11/15/17 12:45 pm (PLEASE CALL 24HRS IN ADVANCE IF YOU NEED TO CANCEL. PLEASE ARRIVE 10-15MIN IN ADVANCE TO MAKE SURE YOUR PERSONAL INFORMATION IS UPDATED. THANK YOU. YOU WILL BE SEEN BY ) Romario Samson DO [Primary Care Provider] - 11/08/17 1:30 pm (Please follow up as schedule...) - Diet and Activity Activity: increase activity as tolerated Diet: low salt diet
--- NOTE | 2017-11-07 08:10 | Electrocardiograph Report ---
[place] [address] Test Date: 2017-11-01 Pat Name: Mikala Rodas Department: 104 Room: 2A12 Gender: F Park Keeper: NITHIN : 1950 Requested By: Douglas Mathur Order Number: [id number] Reading MD: Attila Paez DO Measurements Intervals [place] Rate: 98 P: 51 SC: 152 QRS: 69 QRSD: 76 T: 39 QT: 311 QTc: 366 Interpretive Statements SINUS RHYTHM POSSIBLE LEFT ATRIAL ENLARGEMENT Electronically Signed On 11-07-2017 7:55:49 EDT by Attila Paez DO
== END 2017-11-04 10:23 | disposition home or self-care (01) | DRG 194 ==
LOC: 2ANU 14:58 → EMEROO 14:58 → 2ANU 19:08
PROVIDERS: ADMIT Student in an Organized Health Care Education/Training Program; ATTEND Family Medicine